=== PATIENT | male | born 1950 | race Caucasian/White ===

== ENCOUNTER → 2016-10-07 | Outpatient (CLI) | payer BC ==
[~2016-10-07] MED LIST: LISI2.5T PO; METO25TA9 PO
--- NOTE | 2016-10-07 09:31 | KCIC ---
EXAM: CT OF THE CHEST WITHOUT CONTRAST. HISTORY: Lung nodule follow-up. TECHNIQUE: Computed tomography of the chest was performed without intravenous contrast. COMPARISON: June 26, 2015, December 22, 2014. FINDINGS: Images of the upper abdomen reveal no acute abnormality. Bone windows reveal no suspicious lesions. There are no pathologically enlarged mediastinal or axillary lymph nodes. There is no pleural or pericardial effusion. The heart is not enlarged. Fatty infiltration of the lateral left ventricular wall is consistent with a chronic infarct. Coronary atherosclerotic calcifications are noted. The nodule of concern in the right upper lobe on image 30 measures 4 mm. It has been stable for 2 years and is likely benign. There are no suspicious nodules. A few pneumatoceles are likely postinflammatory measure up to 1.3 cm in the left upper lobe. There is mild dependent atelectasis. IMPRESSION: 1. The right upper lobe nodule of concern has been stable for 2 years and is likely benign. 2. Chronic left ventricular lateral wall infarct. *One or more of the following individualized dose reduction techniques were utilized for this examination: 1. Automated exposure control. 2. Adjustment of the mA and/or kV according to patient size. 3. Use of iterative reconstruction technique. Electronically signed by: Dave Varela MD (10/07/2016 9:27 AM) [email or web address]
== END | disposition home or self-care (01) ==
LOC: KCIC CT 08:30
PROVIDERS: ATTEND Internal Medicine Pulmonary Disease
DX: R91.1 Solitary pulmonary nodule (principal)
CPT/HCPCS: 71250

== ENCOUNTER → 2017-07-25 | Outpatient (CLI) | payer BC ==
[2017-07-25 14:12] LABS: ISTAT CREATININE 0.9 mg/dL (0.7-1.3)
[2017-07-25] MEDS: GADOBUTROL 7.5 MMOL/7.5 ML VIAL IV (14:51)
== END | disposition home or self-care (01) ==
LOC: KCIC MRI 13:43
DX: H49.22 Sixth [abducent] nerve palsy, left eye (principal); I10 Essential (primary) hypertension; Z87.891 Personal history of nicotine dependence
CPT/HCPCS: 70553; 82565; A9585

== ENCOUNTER → 2018-12-28 | Outpatient (CLI) | payer BC ==
[~2018-12-28] MED LIST changes: +IOHEXOL 300 MG/ML 100ML VIAL. IV ONE; +METO-239 PO; -METO25TA9 PO
--- NOTE | 2018-12-28 18:03 | KCIC ---
CTA neck History: Left carotid stenosis, previous right carotid surgery Technique: After bolus of intravenous contrast, volumetric CT data acquisition was acquired of the neck. Multiplanar reconstruction images to include MIP and 3-D reconstruction images are submitted. Exposure: One or more of the following individualized dose reduction techniques were utilized for this examination: 1. Automated exposure control 2. Adjustment of the mA and/or kV according to patient size 3. Use of iterative reconstruction technique. Comparison: October 27, 2014 Any determination of stenosis is based on NASCET criteria. Findings: There is again visualization of trace residual flow of the left cervical internal carotid artery throughout its course. Left common carotid artery is patent although smaller caliber than the right with degree of intimal thickening. There is again greater degree of noncalcified plaque of the left internal carotid artery origin, again prominent density of throughout the left cervical internal carotid artery. Previously seen plaque and stenosis of the right internal carotid artery and right carotid bulb is no longer visualized. No new significant stenosis is identified of the right cervical internal carotid artery. There is calcified plaque of the carotid siphons bilaterally. There is visualization of left ICA bifurcation and left middle cerebral artery via patent anterior communicating artery and bilateral A1 segments. There is also patent left posterior communicating artery. Both vertebral arteries are patent without significant stenosis or dissection flap. There is calcified plaque near the origins of the great vessels without significant stenosis. There is multilevel cervical facet degenerative change. There is left C3-4 and C4-5 neural foramina compromise. Impression: 1. Findings on the left are similar comparing with the previous 2014 exam, diffuse abnormal density of the left cervical internal carotid artery which is nearly occluded although some minimal flow present throughout (string sign). Right cervical internal carotid artery is now widely patent. 2. Facet degenerative change contributes to narrowing of the left C3-4 and C4-5 neural foramina. Electronically signed by: Abhijit Casanova MD (12/28/2018 6:00 PM) [email or web address]
== END | disposition home or self-care (01) ==
LOC: KCIC CT 08:09
PROVIDERS: ATTEND Registered Nurse Medical-Surgical
DX: M48.02 Spinal stenosis, cervical region (principal); I65.22 Occlusion and stenosis of left carotid artery
CPT/HCPCS: 70498; 82565; Q9967